=== PATIENT | male | born 1950 | race Two or more races ===

== ENCOUNTER → 2020-04-12 | Outpatient (CLI) | payer OTHER ==
[2020-04-12 12:21] LABS: Albumin 3.5 g/dL (3.4-5.0); Calcium 8.3 mg/dL (8.5-10.1); Potassium 4.5 mmol/L (3.5-5.1)
[2020-04-12 12:58] LABS: BUN/Creatinine Ratio 9.9; Bilirubin, Total 0.5 mg/dL (0.2-1.0); Total Protein 7.8 g/dL (6.4-8.2)
== END | disposition home or self-care (01) ==
LOC: CT 09:57
DX: I71.4 Abdominal aortic aneurysm, without rupture (principal); N20.1 Calculus of ureter; E27.8 Other specified disorders of adrenal gland; N20.0 Calculus of kidney; K57.30 Diverticulosis of large intestine without perforation or abscess without bleeding; J84.10 Pulmonary fibrosis, unspecified; D73.89 Other diseases of spleen; M47.819 Spondylosis without myelopathy or radiculopathy, site unspecified; N32.89 Other specified disorders of bladder; N20.2 Calculus of kidney with calculus of ureter; Z96.641 Presence of right artificial hip joint
CPT/HCPCS: 36415; 74176; 80053

== ENCOUNTER 2020-04-29 17:33 | Inpatient (IN) | payer OTHER ==
[~2020-04-29] VITALS: Ht 170.2 cm; Wt 94.7 kg
[2020-04-29] MEDS ORDERED: SODIUM CHLORIDE 0.9% 500 ML IV ONE (19:00)
[2020-04-29] MEDS ORDERED: AZITHROMYCIN 500MG/ 250ML 250 ML IV ONE (20:00)
[2020-04-29] MEDS ORDERED: DOXYCYCLINE 100MG/250ML 250 ML IV ONE (20:00)
[2020-04-29] MEDS ORDERED: DexAMETHasone SOD PHOS 10MG/1ML VIAL INJ IV ONE (20:00)
[2020-04-29 20:25] LABS: Basophils # (auto) 0 10 ^3/uL (0-0.2); Basophils % (auto) 0.3 % (0.0-2.0); Eosinophils # (auto) 0.1 10 ^3/uL (0-0.8); Eosinophils % (auto) 1.6 % (0.0-7.0); Hematocrit 34.4 % (41.0-53.0); Hemoglobin 11.4 g/dL (13.5-17.5); Lymphocytes # (auto) 0.3 10 ^3/uL (0.4-5.4); Lymphocytes % (auto) 8.1 % (10.0-50.0); Mean Corpuscular Hemoglobin 25.3 pg (28.0-32.0); Mean Corpuscular Hgb Conc. 33.1 g/dL (32.0-36.0); Mean Corpuscular Volume 76.7 fL (80.0-100.0); Monocytes # (auto) 0.5 10 ^3/uL (0-1.3); Monocytes % (auto) 11.2 % (0.0-12.0); Neutrophils # (auto) 3.2 10 ^3/uL (1.6-8.6); Neutrophils % (auto) 78.8 % (37.0-80.0); Nucleated Red Blood Cells % 0.1 %; Platelet Count (auto) 193 10^3/uL (140-450); Red Blood Cells 4.48 10^6/uL (4.5-5.90); Red Cell Distribution Width 18.2 % (11.8-14.3); White Blood Cell 4.1 10^3/uL (4.4-10.8)
[2020-04-29 20:50] LABS: Albumin 3.1 g/dL (3.4-5.0); Calcium 9.2 mg/dL (8.5-10.1); Potassium 4.5 mmol/L (3.5-5.1)
[2020-04-29 20:54] LABS: BUN/Creatinine Ratio 13.6; Bilirubin, Total 0.5 mg/dL (0.2-1.0); Total Protein 8.9 g/dL (6.4-8.2)
[2020-04-29] MEDS ORDERED: MORPHINE SULF INJ 2 MG/ML SYRINGE 1ML IV PRN (22:15)
[2020-04-29] MEDS ORDERED: NITROGLYCERIN 0.4 MG SL TAB SL PRN (22:15)
[2020-04-30 08:00] VITALS: BP 180/89
[2020-04-30] MEDS ORDERED: LISI-646 PO (09:40)
[2020-04-30] MEDS ORDERED: METO25TA5 PO (09:41)
[2020-04-30] MEDS ORDERED: NAPROXEN 500 MG TAB PO PRN (10:15)
[2020-04-30] MEDS: DexAMETHasone SOD PHOS 10MG/1ML VIAL INJ IV SCH ×2 (12:00→21:16)
[2020-04-30] MEDS: ASCORBIC ACID 500 MG TAB PO SCH ×2 (12:01→21:16)
[2020-04-30] MEDS: ZINC SULFATE 220mg CAP or TAB PO SCH (12:01)
[2020-04-30] MEDS: cefTRIAXone 1GM/50ML D5W 50 ML IV SCH (12:01)
[2020-04-30] MEDS: METOPROLOL TARTRATE 25 MG TAB PO SCH ×2 (12:01→21:39)
[2020-04-30] MEDS: LISINOPRIL 20 MG TAB PO SCH (12:02)
[2020-04-30] MEDS: AZITHROMYCIN 250 MG TAB PO SCH (12:02)
[2020-04-30] MEDS: CHOLECALCIFEROL (VITD3) 2,000 UNIT CAP PO SCH (12:02)
[2020-04-30 12:47] VITALS: BP 179/94
[2020-04-30 15:56] VITALS: BP 164/101
[2020-05-01] VITALS: BP 162/87
[2020-05-01 08:00] VITALS: BP 152/98
[2020-05-01] MEDS: ZINC SULFATE 220mg CAP or TAB PO SCH (09:21)
[2020-05-01] MEDS: DexAMETHasone SOD PHOS 10MG/1ML VIAL INJ IV SCH (09:21)
[2020-05-01] MEDS: cefTRIAXone 1GM/50ML D5W 50 ML IV SCH (09:21)
[2020-05-01] MEDS: METOPROLOL TARTRATE 25 MG TAB PO SCH (09:22)
[2020-05-01] MEDS: CHOLECALCIFEROL (VITD3) 2,000 UNIT CAP PO SCH (09:22)
[2020-05-01] MEDS: LISINOPRIL 20 MG TAB PO SCH (09:22)
[2020-05-01] MEDS: ASCORBIC ACID 500 MG TAB PO SCH (09:23)
[2020-05-01] MEDS: traMADol HCL 50 MG TAB PO PRN ×2 (09:23→14:40)
[2020-05-01] MEDS: AZITHROMYCIN 250 MG TAB PO SCH (09:23)
[2020-05-01] MEDS ORDERED: AZIT250T9 PO (11:39)
[2020-05-01] MEDS ORDERED: CHOL1CAP47 PO (11:39)
[2020-05-01] MEDS ORDERED: PRED20TA2 PO (11:39)
[2020-05-01] MEDS ORDERED: ASCO500T11 PO (11:39)
[2020-05-01 14:14] VITALS: BP 158/84
== END 2020-05-01 14:39 | DRG 177 ==
LOC: EDBD 17:33 → ER 17:36 → EEVIPCON 17:36 → OVERFLOW 17:37 → WEST WING 04-30 08:54
PROVIDERS: ADMIT Nurse Practitioner; ATTEND Internal Medicine
DX: U07.1 COVID-19 (principal); J12.89 Other viral pneumonia; F11.90 Opioid use, unspecified, uncomplicated; I70.0 Atherosclerosis of aorta; Z96.649 Presence of unspecified artificial hip joint; Z83.3 Family history of diabetes mellitus; M19.90 Unspecified osteoarthritis, unspecified site; I12.9 Hypertensive chronic kidney disease with stage 1 through stage 4 chronic kidney disease, or unspecified chronic kidney disease; N18.9 Chronic kidney disease, unspecified; R09.02 Hypoxemia
CPT/HCPCS: 36415; 71045; 80053; 82728; 83605; 83880; 85025; 87426; 96365; 96366; 96367; 96375; G0378; J0696; J1100; J3490